=== PATIENT | female | born 1960 | race Hispanic/Latino ===

== ENCOUNTER 2018-09-28 19:01 | Emergency (ER) | payer MEDICARE ==
[2018-09-28] MEDS ORDERED: NACL 0.9% 1000 ML 1,000 ML IV ONE (19:27)
[2018-09-28] MEDS ORDERED: ATIVAN IV ONE ×2 (19:28→20:25)
[2018-09-28] MEDS ORDERED: ATIVAN ONE (19:30)
--- NOTE | 2018-09-28 19:34 | Emergency Department Report ---
ED General Adult HPI - General Stated complaint: AMS/DRUGS Time Seen by Provider: 09/28/18 19:22 Source: patient, EMS Mode of arrival: Stretcher Limitations: No Limitations - History of Present Illness Initial comments: Patient is a 58-year-old female that presents emergency room with complaints of anxiety and tremors. Patient states she smokes somebody's vaporizer and her symptoms started. Patient states she does not know what drug was inside the vaporizer. Patient states she is having tremors and feeling jittery and anxious and shaking. Patient denies pain. Patient denies chest pain. Patient denies any other symptoms. Patient denies shortness of breath. Patient denies dizziness. Patient denies headache. Patient states she does not use drugs. Patient states she drinks occasionally. Patient states she does smoke daily. -: Sudden Consistency: constant Improves with: rest Worsens with: none Associated Symptoms: denies other symptoms. denies: confusion, chest pain, cough, diaphoresis, fever/chills, headaches, loss of appetite, malaise, nausea/vomiting, rash, seizure, shortness of breath, syncope, weakness Treatments Prior to Arrival: none - Related Data Home Medications Medication Instructions Recorded Confirmed Last Taken No Known Home Medications [No 09/28/18 09/28/18 Unknown Reported Home Medications] Allergies Allergy/AdvReac Type Severity Reaction Status Date / Time [place] And Derivatives Allergy Mild Unknown Verified 09/28/18 22:59 codeine Allergy Mild Vomiting Verified 09/28/18 22:59 ED Review of Systems ROS: Stated complaint: AMS/DRUGS Other details as noted in HPI Constitutional: denies: chills, fever Eyes: denies: eye pain, eye discharge, vision change ENT: denies: ear pain, throat pain Respiratory: denies: cough, shortness of breath, wheezing Cardiovascular: denies: chest pain, palpitations Endocrine: no symptoms reported Gastrointestinal: denies: abdominal pain, nausea, diarrhea Genitourinary: denies: urgency, dysuria, discharge Musculoskeletal: denies: back pain, joint swelling, arthralgia Skin: denies: rash, lesions Neurological: denies: headache, weakness, paresthesias Psychiatric: anxiety. denies: depression Hematological/Lymphatic: denies: easy bleeding, easy bruising ED Past Medical Hx - Past Medical History Previous Medical History?: No - Surgical History Past Surgical History?: No - Family History Family history: no significant - Social History Smoking Status: Current Every Day Smoker Substance Use Type: Alcohol - Medications Home Medications: Home Medications Medication Instructions Recorded Confirmed Last Taken Type No Known Home Medications [No 09/28/18 09/28/18 Unknown History Reported Home Medications] ED Physical Exam - General Limitations: No Limitations General appearance: alert, in no apparent distress, anxious - Head Head exam: Present: atraumatic, normocephalic - Eye Eye exam: Present: normal appearance - ENT ENT exam: Present: mucous membranes moist - Neck Neck exam: Present: normal inspection - Respiratory Respiratory exam: Present: normal lung sounds bilaterally. Absent: respiratory distress - Cardiovascular Cardiovascular Exam: Present: regular rate, normal rhythm. Absent: systolic m urmur, diastolic murmur, rubs, gallop - GI/Abdominal GI/Abdominal exam: Present: soft, normal bowel sounds - Extremities Exam Extremities exam: Present: normal inspection - Back Exam Back exam: Present: normal inspection - Neurological Exam Neurological exam: Present: alert, oriented X3 - Psychiatric Psychiatric exam: Present: anxious - Skin Skin exam: Present: warm, dry, intact, normal color. Absent: rash ED Course Vital Signs 09/28/18 09/28/18 09/28/18 19:30 20:00 21:02 Temperature 98.4 F Pulse Rate 102 H 103 H 108 H Respiratory 16 103 H 18 Rate Blood Pressure 101/59 Blood Pressure 129/73 122/69 [Left] O2 Sat by Pulse 100 97 Oximetry - Reevaluation(s) Reevaluation #1: Patient states she is feeling a little bit better. Patient will be given another dose of Ativan since the patient is still feeling anxious. The nurse to call poison control 09/28/18 20:25 She states her symptoms have resolved. The patient has received a total of 3 mg of Ativan. Patient is resting comfortably and easily arousable. Patient denies tremors and anxiety. 09/28/18 21:16 Reevaluation #2: SALUD ONTIVEROS Female : 1960 [facility]# [id number] 09/28/18 21:51 - Nurse Note by HANNAH MORENO Acct Num: [id number] : 1960 Patient Age: 58 Spoke with Jefferson from [place] [facility] who states to get ASA and tylenol level as well as a urine drug screen. EKGs every 2 hours for the next 6 hours, look for a prolonged QTC over 500 and prolonged QRS over 100 and call back if this happens or after 6 hours. Initialized on 09/28/18 21:51 - END OF NOTE Reevaluation #3: Patient states she is feeling better. 09/29/18 00:31 Discussed all results with patient. Patient is stable for discharge. Patient will be discharged home.. Patient agrees to plan of care.. Patient given discharge instructions. Patient voiced understanding of discharge instructions. 09/29/18 01:26 ED Medical Decision Making - Lab Data Result diagrams: 09/28/18 19:42 09/28/18 19:42 - EKG Data -: EKG Interpreted by Me EKG shows normal: sinus rhythm, axis, intervals, QRS complexes, ST-T waves Rate: tachycardia - Medical Decision Making Patient is a 58-year-old female that presents emergency room with complaints of jittery feeling and shaking and tremors and anxiety. Patient actually ingested an unknown drug. Patient given Ativan and all her symptoms resolved. Patient labs done. Labs unremarkable except for UDS positive for THC. Poison control consult. Respiratory commands labs and serial EKGs. No change in EKGs noted. Patient stable for discharge. Patient discharged home. - Differential Diagnosis accidental ingestion. Anxiety. Drug reaction Critical care attestation.: If time is entered above; I have spent that time in minutes in the direct care of this critically ill patient, excluding procedure time. ED Disposition Clinical Impression: Anxiety, Anxiety related tremor, Tachycardia Accidental drug ingestion Qualifiers: Encounter type: initial encounter Qualified Code(s): T50.901A - Poisoning by unspecified drugs, medicaments and biological substances, accidental (unintentional), initial encounter Disposition: TO HOME OR SELFCARE Is pt being admited?: No Does the pt Need Aspirin: No Condition: Stable Instructions: Poison Proofing Your Home (ED), Anxiety (ED), Adverse Drug Reaction (ED) Additional Instructions: Patient to follow-up with primary care in 2-3 days. Patient to take Tylenol or ibuprofen when necessary for pain. Patient to return to ER if condition worsens. Patient to increase water. Patient to rest. Referrals: PRIMARY CARE,MD [Primary Care Provider] - 2-3 Days Time of Disposition: 01:26
[2018-09-28 20:05] LABS: Basophils # (Auto) 0.1 K/mm3 (0.0-0.1); Basophils % (Auto) 0.7 % (0.0-1.8); Eosinophils # (Auto) 0.1 K/mm3 (0.0-0.4); Eosinophils % (Auto) 1.3 % (0.0-4.3); Hematocrit 38.1 % (30.3-42.9); Lymphocytes # (Auto) 2.6 K/mm3 (1.2-5.4); Lymphocytes % (Auto) 25.1 % (13.4-35.0); Mean Corpuscular HGB Conc 34 % (30-34); Mean Corpuscular Volume 97 fl (79-97); Monocytes # (Auto) 0.7 K/mm3 (0.0-0.8); Monocytes % (Auto) 7.2 % (0.0-7.3); Platelet Count 227 K/mm3 (140-440); Red Blood Count 3.94 M/mm3 (3.65-5.03); Red Cell Distribution Width 14.4 % (13.2-15.2)
[2018-09-28 20:31] LABS: Alanine Aminotransferase 12 units/L (7-56); BUN/Creatinine Ratio 32; Blood Urea Nitrogen 19 mg/dL (7-17); Calcium 9.2 mg/dL (8.4-10.2); Hemolysis Index 8
[2018-09-29 00:15] LABS: Bacteria,Urine 1+ /HPF (Negative); Bilirubin,Urine NEG (Negative); Blood,Urine NEG (Negative); Color,Urine Yellow (Yellow); Mucus,Urine FEW /HPF; Protein,Urine <15 mg/dL mg/dL (Negative); Urobilinogen,Urine < 2.0 mg/dL (<2.0)
[2018-09-29 00:46] LABS: Amphetamine Screen,Urine PRESUMPTIVE NEGATIVE; Benzodiazepines Screen,Urine PRESUMPTIVE NEGATIVE; Cocaine Screen,Urine PRESUMPTIVE NEGATIVE; Methadone Screen,Urine PRESUMPTIVE NEGATIVE; Opiate Screen,Urine PRESUMPTIVE NEGATIVE
[2018-09-29 01:18] LABS: Cannabinoid Screen,Urine PRESUMPTIVE POSITIVE
[2018-09-29 02:01] VITALS: BP 125/78
== END 2018-09-29 01:50 | disposition home or self-care (01) ==
LOC: ED 19:01
DX: T50.901A Poisoning by unspecified drugs, medicaments and biological substances, accidental (unintentional), initial encounter (principal); F41.8 Other specified anxiety disorders; F17.200 Nicotine dependence, unspecified, uncomplicated; Z91.018 Allergy to other foods; Z88.6 Allergy status to analgesic agent; Y92.89 Other specified places as the place of occurrence of the external cause
CPT/HCPCS: 36415; 80053; 80307; 81001; 85025; 87086; 93005; 93010; 96374; 96376; 99284; G0480; J2060; J7030; 80320